=== PATIENT | female | born 1930 | race Asian ===

== ENCOUNTER 2018-04-30 09:36 | Emergency (ER) | payer BC, MEDICAID ==
[~2018-04-30] VITALS: Ht 160 cm; Wt 54.5 kg
[2018-04-30] MEDS ORDERED: LOSA25TA41 PO (09:49)
[2018-04-30 10:07] VITALS: BP 148/77
== END 2018-04-30 11:46 | disposition left against medical advice (07) ==
LOC: EMS 09:37
DX: R41.82 Altered mental status, unspecified (principal); V49.40XA Driver injured in collision with unspecified motor vehicles in traffic accident, initial encounter; Y93.89 Activity, other specified; Y92.89 Other specified places as the place of occurrence of the external cause; Y99.8 Other external cause status